=== PATIENT | male | born 1965 | race Caucasian/White ===

== ENCOUNTER 2024-12-07 19:01 | Emergency (ER) | payer BC, SELFPAY ==
[2024-12-07 19:12] VITALS: BP 126/80; PULSE 81; RESP 16; TEMP 36.6; O2SAT 94; BMI 28.5
--- NOTE | 2024-12-07 19:20 | PC.NURSE ---
[facility] in [place], [place]. Store number [id number].
--- NOTE | 2024-12-07 21:21 | ED_ITS ---
HPI - Wound/Laceration General: Chief Complaint: Wound/Laceration Stated Complaint: right finger lac Time Seen by Provider: 12/07/24 19:39 Source: patient Mode of arrival: ambulatory Limitations: no limitations History of Present Illness: Patient is a very nice 59-year-old male presents to ED today for evaluation of a laceration involving his right index finger that he sustained just a few hours ago after accidentally cutting it on a knife. Tetanus is up-to-date. Onset (ago): hour(s) Extremity Location: Right: hand (index finger) Place: outdoors Patient tetanus UTD: Yes Context: accidental Associated symptoms: Reports no associated symptoms Treatments prior to arrival: bandage Review of Systems Musc: Reports: extremity pain Skin/Breast: Reports: other (laceration R index finger) Neuro: Denies: numbness in extremities or sensory changes Physical Exam Const: COMMON NORMALS: no acute distress, average body habitus, no limitations, healthy appearing, alert and well nourished Extremity: COMMON NORMALS: full ROM and capillary refill normal GENERAL: Yes normal exam except as noted RIGHT UPPER EXTREMITY: Yes hand & digits (small 1.25 cm laceration to distal dorsal R index finger ) Right hand and digits: Yes ROM exam (normal), Yes neurovascular exam (normal) and Yes tendon exam (normal) Neuro: COMMON NORMALS: moves all extremities, no focal motor deficits and no sensory deficits noted SENSORIUM/ORIENTATION: Yes alert Skin: TRAUMA: laceration Procedures Laceration Laceration 1: Site: hand (R index finger) Side (If applicable): right Size (cm): 1.25 Description: linear Depth: simple, single layer Local Anesthetic: lidocaine 2% Amount of anesthesia used (mL): 1.0 Pre-repair: wound explored and irrigated extensively Skin layer closed with: nylon Size (cm): 5-0 Number of sutures: 3 Technique: simple, interrupted Course Vital Signs: Vital signs: Vital Signs Temperature 98 F 12/07/24 19:12 Pulse Rate 81 12/07/24 19:12 Respiratory Rate 16 12/07/24 19:12 Blood Pressure 126/80 12/07/24 19:12 Pulse Oximetry 94 12/07/24 19:12 Oxygen Delivery Me thod Room Air 12/07/24 19:12 MDM - Wound/Laceration Medical Decision Making Laceration copiously irrigated and repaired as documented. Wound care/infection precautions discussed. His tetanus was up-to-date. Differential Diagnosis Likely laceration Medical Records I reviewed the patient's medical records. No radiology studies performed this visit Discharge Plan Discharge Patient Disposition: Home Clinical Impression: Laceration of right index finger Qualifiers: Encounter type: initial encounter Damage to nail status: without damage Foreign body presence: without foreign body Qualified Code(s): S61.210A - Laceration without foreign body of right index finger without damage to nail, initial encounter Condition: Stable Discharge Orders: Discharge ED (Routine); Ordered 12/07/24 Ordered By: Jackie Childs Patient Instructions: Finger Laceration (ED) Activity Restrictions/Additional Instructions: Keep wound/laceration clean with warm soap and water twice daily. Monitor for signs of infection such as redness, swelling, increased pain, or drainage. Please seek medical re-evaluation if these occur. If you received sutures today these will need to be removed (unless you were told by the provider that they are absorbable). The provider should have discussed with you the length of time until removal-7 DAYS. Print Language: Micronesian Coding Level of Care Code ED Assembly Line Inspector for Jaime Gan
== END 2024-12-07 21:56 | disposition home or self-care (01) ==
PROVIDERS: Emergency Provider Physician Assistant
DX: S61.210A Laceration without foreign body of right index finger without damage to nail, initial encounter (principal); W26.0XXA Contact with knife, initial encounter
CPT/HCPCS: 12001; 99282; A6446